=== PATIENT | female | born 1945 | race Caucasian/White ===

== ENCOUNTER 2024-03-13 09:04 | Emergency (ER) | payer MEDICARE, OTHER, SELFPAY ==
[2024-03-13 09:11] VITALS: BP 152/100
[2024-03-13] MEDS: ULTRAM 50 MG PO (11:28)
[2024-03-13] MEDS: DECADRON 10 MG PO (11:28)
--- NOTE | 2024-03-13 11:28 | ED.MUSCINJ ---
HPI-Injury
General
Chief Complaint: Musculo-Skeletal Complaint
Source: patient and family (Daughter at bedside)
Exam Limitations: none
Time Seen by Provider: 03/13/24 11:00
Nursing documentation reviewed up to this point in time: agreed with
History of Present Illness-Injury
Initial Injury comments:
78-year-old female with history of asthma, HTN, GERD, anxiety, chronic bilateral hip pain followed by [facility] orthopedics. Has had hip injections in the past with good relief of her pain. Her left hip has been bothering her significantly more
lately and she has an appointment with [facility] on 04/06 for an injection but she states the pain has gotten so bad that she cannot wait until then. Denies recent injury/overuse, denies fever. Feels well otherwise. Pain keeping her up last
night. Has to walk with cane.
Past History
Past History
ED Past Medical History: GERD, HTN, NIDDM, Psychiatric and Other (Chronic bilateral hip pain)
ED Past Surgical History: Orthopedic
Social History
Tobacco: Non-smoker
Alcohol: Occasional
Drug: None
Personal:
Living: with family
Review of Systems
Review of Systems
Allergies reviewed?: Yes
Other source history: family
All Other Systems: ROS reviewed and negative except as documented in HPI and ROS
Constitutional: Denies fever
Respiratory: Denies trouble breathing
Cardiac: Denies chest pain
ABD/GI: Denies abdominal pain or nausea
: Denies dysuria, frequency, incontinence or difficulty voiding
Musculoskeletal: Reports other (Bilateral hip pain, left hip pain has been getting much worse lately)
Skin: Reports no symptoms
Neurological: Reports no symptoms
Phy Exam
Physical Exam
Physical Exam:
GENERAL: No acute distress. A&Ox3.
CONSTITUTIONAL: Afebrile.
EYES: clear, conjunctivae normal
ENMT: moist mucus membranes
RESPIRATORY: Regular respirations, nonlabored, lungs clear.
CARDIOVASCULAR: Regular rate and rhythm, no murmurs, no rubs.
GI: Soft, nontender, normal BS
MUSCULOSKELETAL: Left hip tender to palpate laterally. Limited ROM due to pain. Well perfused.
SKIN: Warm, dry, pink
PSYCH: Normal mood and affect. Well kept, interactive and appropriate
NEUROLOGIC: Awake, alert and oriented. No focal neurological deficits
Injury Course
Orders/Labs/Results
Orders:
Orders
03/13/24 11:18
Dexamethasone Pf [Decadron] 10 mg PO NOW STA
Tramadol HCl [Ultram] 50 mg PO NOW STA
03/13/24 11:19
Hip, Left 2-3 Views [CR Hip - LT w/wo Pel 2-3 Vw*] Urgent
Comment:
Reason For Exam: acute on chronic pain
Include a pelvis x-ray?: No
03/13/24 11:26
Dexamethasone Pf [Decadron] 10 mg .ROUTE .STK-MED ONE
Tramadol HCl [Ultram] 50 mg .ROUTE .STK-MED ONE
MDM/Problems Addressed
Differential Diagnosis Includes:
OA, bursitis
MDM/Problems Addressed:
78-year-old female with history of asthma, HTN, GERD, anxiety, chronic bilateral hip pain followed by [facility] orthopedics. Has had hip injections in the past with good relief of her pain. Her left hip has been bothering her significantly more
lately and she has an appointment with [facility] on 04/06 for an injection but she states the pain has gotten so bad that she cannot wait until then. Denies recent injury/overuse, denies fever. Feels well otherwise. Pain keeping her up last
night. Has to walk with cane.
1:30 PM:
Just received patient's x-ray report: IMPRESSION:
Moderate bilateral hip osteoarthritis. Stable
Moderate fecal material in the colon. Stable
Postsurgical change of the lower lumbar spine. Stable
Prescription for prednisone taper sent to patient's pharmacy; prescription for tramadol sent to patient's pharmacy
Patient will keep her appointment with [facility] orthopedics on 04/06
*Critical Care Note
Total Time (30-74mins, 75-104mins- exclusive of procedures): Not Applicable
ED Attending Note
-
Portions of this chart may have been created with voice recognition software.� Occasional wrong word or��sound alike� substitutions may have occurred due to the inherent limitations of voice recognition software.
Discharge Plan
Departure
Patient Disposition: Home (Routine Discharge)
Date of Disposition: 03/13/24
Time of Disposition: 13:37
Patient with high blood pressure during this ER visit?: No
Condition: Good
Discharge Problem:
Osteoarthritis of left hip, Left hip pain
Instructions: Hip Pain ED, Narcotic Pain Medication
Prescriptions:
New
prednisone 10 mg Tablet
See Rx Instructions .ROUTE .COMPLEX Qty: 30 0RF
Rx Instructions:
Take By Mouth:
40 mg daily x3 days, 30 mg daily x3 days,
20 mg daily x3 days, 10 mg daily x3 days.
tramadol 50 mg tablet
50 mg PO Q6H PRN (Reason: Pain) Qty: 14 0RF
No Action
losartan 50 mg Tablet
50 mg PO DAILY
omeprazole 40 mg Capsule,Delayed Release(Dr/Ec)
40 mg PO DAILY
bupropion HCl 100 mg Tablet
100 mg PO DAILY
calcium carbonate [Calcium 600] 600 mg calcium (1,500 mg) Tablet
1,200 mg PO DAILY
hydrochlorothiazide 25 mg Tablet
25 mg PO DAILY
atenolol 50 mg Tablet
50 mg PO DAILY
vitamin B complex Capsule
1 cap PO DAILY
escitalopram oxalate 20 mg Tablet
20 mg PO DAILY
cholecalciferol (vitamin D3) [Vitamin D3] 25 mcg (1,000 unit) Tablet,Chewable
25 mcg PO DAILY
Ozempic 0.25 mg or 0.5 mg (2 mg/3 mL) Pen Injector
0.25 mg SC QWEEK
Rx Instructions:
Q Monday AM
fluticasone furoate-vilanterol [Breo Ellipta] 100-25 mcg/dose Blister With Device
1 inh INHALATION DAILY
Myrbetriq 25 mg Tablet Extended Release 24 Hr
25 mg PO DAILY
sennosides [Senokot] 8.6 mg tablet
17.2 mg PO BID Qty: 2 0RF
magnesium hydroxide [Milk of Magnesia] 400 mg/5 mL suspension
30 ml PO HS PRN (Reason: Constipation) Qty: 1 0RF
oxycodone-acetaminophen [Percocet] 10-325 mg tablet
1 tab PO Q6H PRN (Reason: moderate-severe pain) Qty: 30 0RF
Rx Instructions:
1/2 tab moderate pain or 1 if severe
Rx Qasim Gil
docusate sodium [Colace] 100 mg capsule
100 mg PO BID Qty: 1 0RF
tizanidine 2 mg capsule
2 mg PO TID Qty: 30 0RF
Rx Instructions:
*Rx provided by Kathe Gil
acetaminophen [Tylenol] 325 mg tablet
650 mg PO Q4H PRN (Reason: mild pain) Qty: 60 0RF
Rx Instructions:
DO NOT exceed >4000 mg daily.
1 Percocet tab = 325 mg of Tylenol.
Referrals:
Rinaldi, orthopedic [Other]
[facility], Orthopedics [Other] - Keep scheduled appt
Kathy Reyna DO [Family Provider] -
Activity Restrictions/Additional Instructions:
As we discussed, your xray shows arthritis.
I sent a prescription to your pharmacy for a Prednisone taper to start tomorrow as you were given a dose here today
I also sent a prescription to your pharmacy for tramadol. Take Tylenol or ibuprofen as needed for mild to moderate pain and use the tramadol for worse pain
Keep your appointment with [facility] orthopedics on 04/06.
Interventions
Interventions:
*Risk Screen - Suicide Last Done: 03/13/24 09:11
*General Assessment Last Done: 03/13/24 09:11
*Neglect/Abuse Screening Last Done: 03/13/24 09:11
*ED COVID-19 Vaccine History Last Done: 03/13/24 09:11
*Nursing Disposition Last Done: 03/13/24 14:03
ED-Musculoskeletal Assessment Last Done: 03/13/24 11:30
Discharge Date and Time
Discharge Date/Time: 03/13/24 14:03
Print Language: LIBERIAN
== END 2024-03-13 14:03 | disposition home or self-care (01) ==
LOC: EMR 09:04
PROVIDERS: EMERGENCY PHYSICIAN Registered Nurse; FAMILY PHYSICIAN Family Medicine
DX: M16.12 Unilateral primary osteoarthritis, left hip (principal); M25.552 Pain in left hip; J45.909 Unspecified asthma, uncomplicated; I10 Essential (primary) hypertension; K21.9 Gastro-esophageal reflux disease without esophagitis; F41.9 Anxiety disorder, unspecified; G89.29 Other chronic pain
CPT/HCPCS: 99283; 73502

== ENCOUNTER → 2024-09-19 12:29 | Outpatient (REF) | payer MEDICARE, OTHER, SELFPAY | LOC: WOUND 12:29 | PROVIDERS: ATTENDING PHYSICIAN Surgery; FAMILY PHYSICIAN Family Medicine | DX: T23.262A Burn of second degree of back of left hand, initial encounter (principal); E11.9 Type 2 diabetes mellitus without complications; X10.2XXA Contact with fats and cooking oils, initial encounter | CPT/HCPCS: 99203 ==

== ENCOUNTER → 2024-09-27 11:13 | Outpatient (REF) | payer MEDICARE, OTHER, SELFPAY | LOC: WOUND 11:13 | PROVIDERS: ATTENDING PHYSICIAN Surgery; FAMILY PHYSICIAN Family Medicine | DX: T23.262A Burn of second degree of back of left hand, initial encounter (principal); E11.9 Type 2 diabetes mellitus without complications; X10.2XXA Contact with fats and cooking oils, initial encounter; Y93.G3 Activity, cooking and baking | CPT/HCPCS: 99212 ==